=== PATIENT | female | born 1940 | race Caucasian/White ===

== ENCOUNTER 2020-04-26 12:07 | Day surgery (SDC) | payer MEDICAID ==
[~2020-04-26] VITALS: Ht 157.5 cm; Wt 52.8 kg
[2020-04-26] VITALS (10 sets, daily range): BP systolic 103–157; BP diastolic 52–81; PULSE 64–88; TEMP 97.3–98.2
[~2020-04-26 12:07] MED LIST: ACTOS30 MG PO; BENZTROPINE1 MG PO; CEPHALEXIN250 MG/5 M PO; DESYREL 100MG100 MG PO; GLYCOLAX; HEPARIN SOD5000 U/ML SQ; IPRATROPIUM BROM3 M1 IH; KLONOPIN 0.5MG0.5 MG PO; KLONOPIN 1MG1 MG PO; KLOR-CON M2020 MEQ PO; LASIX 40MG TABL40 MG PO; LEVSIN0.125 M1 SL; MACRODANTIN; MAGCITRATE; MUCINEX 60600 MG/TAB PO; NORCO 325 MG-7.1 TAB PO; NOVLOG SQ; OMNICEF 300MG300 MG PO; PERCR 7.5 PO; POTASSIUM CH2 MEQ/ML PO; PREVACID 15MG15 MG PO; PREVACID24HROTC PO; PRIL40 PO; REMERON45 MG PO; RISPERDAL 1M1 MG/TAB PO; SEROQUEL 2525 MG/TAB PO; SINEMET 25/101 UDTAB PO; THEO-DUR 2200 MG/TAB PO; THEODUR 300MG; THIORIDAZINE; TOPROL XL100 MG PO; TRAZODO50 MG PO; VITAMIN B-625 MG; ZOCOR 40MG40 MG PO; ZOCOR40 MG PO
--- NOTE | 2020-04-26 20:14 | NUR ---
Resting in bed. Assessment complete. Lungs diminshed throughout. Heart sounds normal. Bowels active x4. Pulses present throughout. BLE edema +1. IV right EJ appears without complications. Alarcon to dependent drainage with tea colored sediment urine. Denies pain. Denies needs. Will monitor. Call light in reach.
--- NOTE | 2020-04-26 23:42 | NUR ---
Resting in bed. Call light in reach.
--- NOTE | 2020-04-27 01:58 | NUR ---
Resting in bed. Denies needs. Call light in reach.
[2020-04-27 04:00] VITALS: BP 113/60; PULSE 62; TEMP 98.1
--- NOTE | 2020-04-27 04:38 | NUR ---
Resting in bed. Denies needs. Call light in reach.
--- NOTE | 2020-04-27 06:08 | NUR ---
Patient had uneventful night. Received schedule tylenol. Otherwise no pain. Alarcon this AM peach colored urine. Resting in bed. Call light in reach.
--- NOTE | 2020-04-27 06:54 | NUR ---
Report given to BIRD Perez
[2020-04-27 07:48] VITALS: BP 124/64; PULSE 69; TEMP 97.7
--- NOTE | 2020-04-27 08:59 | NUR ---
Patient resting in bed. She is concerned about discharging. Dr Barrientos rounded and reviewed the plan of care. Alarcon was discontinued per Dr Barrientos's orders. J ureteral stent strings are secured to skin with tegaderm. Morning medications were given crushed in pudding. Warm blankets were given and patient was repositioned to be more comfortable. Patient agreed she would call if she needed to use the bathroom.
--- NOTE | 2020-04-27 10:23 | NUR ---
After discontinuing currie, patient requested to use the bathroom. Patient got up to the bathroom and had dyspnea on exertion. She voided very little.
[2020-04-27 12:05] VITALS: BP 107/46; PULSE 66; TEMP 97.8
--- NOTE | 2020-04-27 12:36 | NUR ---
PATIENT READY FOR DISCAHRGE. MAIN COMPLAINT HAS BEEN OF BEING COLD, WANTING TO GET HOME WHERE IT IS WARM. PATIENT HAD NO INTEREST IN LUNCH TRAY. TYLENOL FOR PAIN AT DISCAHRGE. DISCHARGE PAPERWORK REVIEWED WITH PATIENT & HER SON. RIJ WAS DC. PATIENT WHEELED OUT WITH ALL BELONGIINGS. DELFINA AND HER SONE DENY QUESTIONS OR CONCERNS. STRESSED THE IMPORTANCE OF FOLLOW UP APPT THURSDAY WITH FOR STENT REMOVAL & TO CALL WITH ANY QUESTIONS OR CONCERNS. MED LIST WITH LAST DOSE TAKE REVIEWED WITH SON, PATIENT FAMILY ASSIST HER WITH HER MEDICATIONS.
== END 2020-04-27 12:41 | disposition home or self-care (01) ==
LOC: SDCO 12:07 → SURG 17:02 → SDCO 04-27 12:41
DX: N20.1 Calculus of ureter (principal); J44.9 Chronic obstructive pulmonary disease, unspecified; E11.9 Type 2 diabetes mellitus without complications; K21.9 Gastro-esophageal reflux disease without esophagitis; I10 Essential (primary) hypertension; E78.5 Hyperlipidemia, unspecified; F32.9 Major depressive disorder, single episode, unspecified; G40.909 Epilepsy, unspecified, not intractable, without status epilepticus; M19.90 Unspecified osteoarthritis, unspecified site; F41.9 Anxiety disorder, unspecified; F25.9 Schizoaffective disorder, unspecified; N28.9 Disorder of kidney and ureter, unspecified; Z86.718 Personal history of other venous thrombosis and embolism; Z87.891 Personal history of nicotine dependence; Z87.440 Personal history of urinary (tract) infections; Z99.81 Dependence on supplemental oxygen
CPT/HCPCS: OP; A4314; A9284; C1769; C2617; J0690; J2405; J2704; J3010; J7120; Q9967